=== PATIENT | female | born 1995 | race Two or more races ===

== ENCOUNTER 2024-02-12 21:10 | Emergency (ER) | payer OTHER, SELFPAY ==
[2024-02-12 21:11] VITALS: BMI 23.3
[2024-02-12 21:18] VITALS: BP 110/70; PULSE 70; RESP 18; TEMP 36.9; O2SAT 99
--- NOTE | 2024-02-12 21:25 | XR_ITS ---
Examination: CT abdomen and pelvis without contrast. Coronal 3-D reconstructions. Sagittal 2-D reconstructions. Date and time of exam:February 13, 2000 2412 0 8:00 AM Indications: Left lower abdominal pain beginning 1700 hrs. Last evening CTDI: vol (mGy): 6.61 DLP: (mGycm): 314 Technique: Axial images of the abdomen have been obtained, 3 mm slice thickness Intravenous contrast material has not been administered. Low dose protocols were performed. One or more of the following dose reduction techniques were used; automated exposure control, adjustment of the mA and/or KV according to patient size, use of iterative reconstruction technique. Findings: No focal liver or splenic lesions Perigastric inflammatory change, gastric sleeve operation Mucosal fold thickening in the stomach No gallstones No pancreatic mass Hyperdense renal medullary pyramids no hydronephrosis or ureteral calculi Aorta normal size No bowel obstruction Normal appendix No diverticulitis No pelvic mass Urinary bladder intact Impression: Significant gastritis pattern
--- NOTE | 2024-02-12 21:33 | PD.EDABDPN ---
ED Abdominal Pain RME/HPI General Chief Complaint: Abdominal Pain Stated complaint: LLQ PAIN X 2 HRS Time seen by provider: 02/12/24 21:23 Arrival date/time: 02/12/24 21:10 RME / HPI RME / HPI narrative: This section includes all my notes and documentations, including HPI, PE, and ED course. Pérez Judge MD HPI: 28-year-old female here to be evaluated with left-sided abdominal pain after eating dinner a few hours ago. With severe nausea. No vomiting. No fever or chills. No urinary symptoms. No diarrhea. No other complaints. ROS: Gastrointestinal: negative except as documented in HPI. Genitourinary: negative except as documented in HPI. Musculoskeletal: negative except as documented in HPI. Skin: negative except as documented in HPI. Neurological: negative except as documented in HPI. Physical Exam: General: Alert and oriented. In obvious pain. Eyes: Conjunctivae and lids clear. Lungs: No respiratory distress. Abdomen: Soft with LUQ tenderness. Normal bowel sounds. No distension. No rebound or guarding. Back: No CVA tenderness. Skin: Warm and dry. Neuro: Alert and oriented X 3. I reviewed all diagnostic test results. My review of the abdominal CT report is gastritis. Blood tests and urine tests are unremarkable. At this point, diagnoses include gastritis. Treatment here included Zofran and Toradol and morphine. Significant improvement noted subjectively and objectively. Recommended a trial of conservative treatment. Based on my best medical judgment, made decision no further evaluation or treatment indicated at this time. Patient understands and agrees to the discharge instructions customized and printed, see below. Discharge instructions from Dr. Judge: 1. After evaluation, there is no emergency such as appendicitis needing urgent surgery. 2. You have mild stomach ulcer, see attached handout. 3. Take omeprazole every morning and famotidine every night for 7 days then as needed. 4. Zofran for nausea/vomiting. 5. See a private doctor on 02/15/2024 for recheck. To make sure there is no serious intra-abdominal condition, ask for help with more investigation not available here in the ER. Such as EGD or scoping the stomach, colonoscopy or scoping the colon, and referral to see health safety instructor. 6. Seek immediate medical care with worsening or with any concerns. Pérez Judge MD Related Data Previous Rx's ?Medication ?Instructions ?Recorded famotidine 40 mg tablet 40 mg PO QDAY #30 tabs 02/13/24 omeprazole 40 mg capsule,delayed 40 mg PO QDAY #30 caps 02/13/24 release ondansetron 4 mg disintegrating 4 mg PO TID PRN nausea and 02/13/24 tablet vomiting 5 days #10 tabs Allergies Allergy/AdvReac Type Severity Reaction Status Date / Time No Known Allergies Allergy Verified 02/12/24 21:12 Course Quality Measures none Orders Category Date Time Status Saline [Insert IV] NOW Care 02/12/24 21:[address] abdomen pelvis wo con Stat Exams 02/12/24 21:25 Taken CBC Stat Lab 02/12/24 21:59 Completed CMP [Comprehensive Metabolic Panel] Stat Lab 02/12/24 21:59 Completed HCG Qualitative,Urine Stat Lab 02/12/24 21:33 Completed Magnesium Stat Lab 02/12/24 21:59 Completed UA [Urinalysis] Stat Lab 02/12/24 21:33 Completed Ketorolac Inj [Toradol Inj] Med 02/12/24 21:23 Discontinued 30 mg IVP X1 ONE Morphine Inj Med 02/12/24 21:23 Discontinued 4 mg IVP X1 ONE Ondansetron Inj [Zofran Inj] Med 02/12/24 21:23 Discontinued 4 mg IV X1 ONE Vital Signs Vital signs: Vital Signs Temperature 98.5 F 02/12/24 21:18 Pulse Rate 70 02/12/24 21:18 Respiratory Rate 18 02/12/24 21:18 Blood Pressure 110/70 02/12/24 21:18 Pulse Oximetry (%) 99 02/12/24 21:18 Oxygen Delivery Method Room Air 02/12/24 21:18 Abdominal Pain MDM Patient data External records reviewed:: None Clinical information provided by:: patient Social determinants that could affect healthcare access:: none Patient has the following chronic illnesses:: None How is presenting disease/condition affected by chronic disease/condition?: no chronic disease Evaluation data The following diagnostics were reviewed and interpreted by me:: lab results and radiology exam(s) Lab and/or radiology exams considered but not ordered:: None Interpretation Summary: Gastritis Medications / Prescriptions Medications or Prescriptions considered but not ordered:: None Medication administrations:: Medication Administration History Discontinued Medications Ketorolac Tromethamine (Ketorolac Inj 30 Mg/Ml Vial) 30 mg IVP X1 ONE Stop: 02/12/24 21:24 Last Admin: 02/12/24 21:44 Dose: 30 mg Documented By: ADALBERTO Morphine Sulfate (Morphine Sulf Inj 10 Mg/Ml Vial) 4 mg IVP X1 ONE Stop: 02/12/24 21:24 Last Admin: 02/12/24 21:43 Dose: 4 mg Documented By: ADALBERTO Ondansetron HCl (Ondansetron Inj 2 Mg/Ml Inj 2 Ml) 4 mg IV X1 ONE; Protocol Stop: 02/12/24 21:24 Last Admin: 02/12/24 21:43 Dose: 4 mg Documented By: ADALBERTO Zofran and Toradol and morphine Consultations Consultation(s) initiated? (list below): No Diagnosis Differential diagnosis abdominal pain: acute appendicitis, calculus of kidney, constipation, diverticulitis, gastroenteritis, pancreatitis and small bowel obstruction Most likely diagnosis given after review of the tests above:: Gastritis Admission Indicated Admission indicated?: not indicated Explain why admission is indicated or not indicated:: No admission criteria Admission Request Was there a request for admission?: No Disposition Plan Disposition Plan: Discharge Discharge Attestation Discharge Attestation: The patient and all family members were given an opportunity to ask questions and understood the discharge instructions. Discharge instructions specifically effects, indications for sooner follow up or return to the emergency department, and the expected course of current diagnosis. Patient condition: Stable Discharge Plan Plan Patient Disposition: HOME (Self Care) Prescriptions/Referrals Prescriptions/Med Rec: New famotidine 40 mg tablet 40 mg PO QDAY Qty: 30 0RF omeprazole 40 mg capsule,delayed release(DR/EC) 40 mg PO QDAY Qty: 30 0RF ondansetron 4 mg tablet,disintegrating 4 mg PO TID PRN (Reason: nausea and vomiting) 5 Days Qty: 10 0RF Referrals: Chevy Christian MD [Primary Care Provider] - In 1 week Problem List Clinical Impression: Stomach ulcer Patient/Caregiver Discharge Instructions Discharge Activity: activity as tolerated Education Materials: Understanding Gastric Ulcers Additional Instructions: Discharge instructions from Dr. Judge: 1. After evaluation, there is no emergency such as appendicitis needing urgent surgery. 2. You have mild stomach ulcer, see attached handout. 3. Take omeprazole every morning and famotidine every night for 7 days then as needed. 4. Zofran for nausea/vomiting. 5. See a private doctor on 02/15/2024 for recheck. To make sure there is no serious intra-abdominal condition, ask for help with more investigation not available here in the ER. Such as EGD or scoping the stomach, colonoscopy or scoping the colon, and referral to see health safety instructor. 6. Seek immediate medical care with worsening or with any concerns. Print Language: [place]an Stand Alone Forms: [facility] Award Info., Patient Portal Info Letter
[2024-02-12] MEDS: ONDANSETRON INJ 2 MG/ML INJ 2 ML 4 MG IV (21:43)
[2024-02-12] MEDS: MORPHINE SULF INJ 10 MG/ML VIAL 4 MG IVP (21:43)
[2024-02-12] MEDS: KETOROLAC INJ 30 MG/ML VIAL IVP (21:44)
[2024-02-12 21:48] LABS: Collection Type, Urine Clean Catch
[2024-02-12 22:02] LABS: Bilirubin,Urine Negative (Negative); Blood,Urine Negative (Negative); Clarity,Urine Clear (Clear/Hazy); Color,Urine Lt-Yellow (Lt Yel-Yel); Glucose, Urine Negative (Negative); Ketones,Urine Negative (Negative); Leukocyte Esterase,Urine Negative (Negative); Nitrite,Urine Negative (Negative); PH,Urine 6.5 (5.0-7.0); Protein,Urine Negative (Neg - Trace); RBC,Urine 1 /hpf (0-3); Specific Gravity,Urine 1.034 (1.001-1.035); Squamous Epithelial Cell,Urine 4 /hpf (0-5); WBC,Urine 4 /hpf (0-5)
[2024-02-12 22:09] LABS: HCG Qualitative,Urine Negative
[2024-02-12 22:31] LABS: Basophils # (Auto) 0.1 Thou/mm3 (0.0-0.2); Basophils % (Auto) 1 % (0-2.5); Eosinophils % (Auto) 1 % (0-10); Hematocrit 32.8 % (36.0-46.0); Hemoglobin 10.9 g/dL (12.0-16.0); Immature Granulocytes % (Auto) 0 % (0-0); Immature Granulocytes Auto 0.01 Thou/mm3 (0.00-0.00); Lymphocytes # (Auto) 3.3 Thou/mm3 (1.0-4.8); Lymphocytes % (Auto) 41 % (10-50); Mean Corpuscular HGB Conc 33.2 g/dl (31.0-37.0); Mean Corpuscular Hemoglobin 26.5 pg (25.0-35.0); Mean Corpuscular Volume 80 fL (80-100); Monocytes # (Auto) 0.6 Thou/mm3 (0.0-0.8); Monocytes % (Auto) 7 % (0-12); Neutrophils # (Auto) 4.1 Thou/mm3 (1.8-7.7); Neutrophils % (Auto) 51 % (37-80); Nucleated Red Blood Cell % 0 /100 WBC (0); Platelet Count 307 Thou/mm3 (140-440); RDW Standard Deviation 44.8 fL (36.4-46.3); Red Blood Count 4.11 Miln/mm3 (4.00-5.20); White Blood Count 8.1 Thou/mm3 (3.6-11.0)
[2024-02-12 22:42] LABS: Alanine Aminotransferase 12 U/L (10-49); Albumin, Serum 4.2 gm/dL (3.5-5.0); Albumin/Globulin Ratio 1.6 (1.2-2.2); Alkaline Phosphatase 52 U/L (46-116); Anion Gap 5 (7-16); Aspartate Amino Transferase 18 U/L (0-34); BUN/Creatinine Ratio 24 Ratio (12-20); Bilirubin,Total 0.5 mg/dL (0.3-1.2); Blood Urea Nitrogen 17 mg/dL (9-23); Calcium 9.5 mg/dL (8.3-10.6); Calcium (Corrected) 9.5 mg/dL (8.5-10.1); Carbon Dioxide 23.7 mMol/L (20.0-31.0); Chloride 108 mMol/L (98-107); Creatinine (Component) 0.7 mg/dL (0.6-1.3); Estimated Creatinine Clearance 107.7 mL/min (>60); Globulin 2.6 gm/dL (2.3-3.5); Glucose 95 mg/dL (74-106); Magnesium 1.9 mg/dL (1.6-2.6); Osmolality,Calculated 275 (275-295); Sodium 137 mMol/L (136-145); Total Protein 6.8 gm/dL (5.7-8.2); eGFR > 60 See Note
--- NOTE | 2024-02-13 01:23 | PRELIM_ITS ---
CT scan of the abdomen and pelvis without intravenous contrast (axial sections with sagittal and leobardo nal reformats) February 13, 2024 at 0008 hours Clinical History: Left flank pain. Comparison: None.Fi ndings:The lung bases are clear. There are bilateral breast implants. The liver, gallbladder, pancrea s, spleen, kidneys and adrenals are unremarkable on this noncontrast study.No evidence of bowel obstr uction. Gastric sleeve surgery changes are noted with adjacent fat stranding. No evidence of adjacent collection. The appendix is within normal limits (coronal images # [id number]). There is no mesenteri c or retroperitoneal adenopathy.The urinary bladder is incompletely distended at the time of the exam ination. Uterus is retroverted. There is no free fluid or free air.The osseous structures are unremar kable.Impression:1. No renal/ureteric calculus or ureteral obstruction. 2. Gastric sleeve surgery kd nges with adjacent fat stranding, findings suggestive of gastritis. 3. Other findings as described ab ove. Report Electronically Signed By: Braeden Hopkins 02/13/2024 1:22:29 AM [EST]
[2024-02-13 02:08] VITALS: BP 124/62; PULSE 78; RESP 19; TEMP 36.6; O2SAT 99
== END 2024-02-13 02:09 | disposition home or self-care (01) ==
PROVIDERS: Emergency Provider Emergency Medicine; PCP Family Medicine
DX: K25.9 Gastric ulcer, unspecified as acute or chronic, without hemorrhage or perforation (principal); K29.70 Gastritis, unspecified, without bleeding
CPT/HCPCS: 36415; 74176; 80053; 81001; 81025; 83735; 85025; 96374; 96375; 99284; J1885; J2270; J2405